=== PATIENT | female | born 2000 | race Caucasian/White ===

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

== ENCOUNTER → 2018-02-16 | Outpatient (CLI) | payer OTHER ==
[~2018-02-16] MED LIST changes: +SKYLA
== END ==
LOC: LAB 08:43
PROVIDERS: ATTEND Nurse Practitioner Family
DX: Z11.3 Encounter for screening for infections with a predominantly sexual mode of transmission (principal)
CPT/HCPCS: 87491; 87591